=== PATIENT | male | born 1940 | race Caucasian/White ===

== ENCOUNTER → 2016-11-30 | Outpatient (CLI) | payer OTHER ==
[~2016-11-30] MED LIST: IOPAMIDOL (ISOVUE-370) 150 ML BTL IV ONE
[2016-11-30 14:17] LABS: CREATININE 0.9 mg/dL (0.7-1.3); GLOMERULAR FILTRATION RATE > 60
== END ==
LOC: FIMAGING 13:27
PROVIDERS: ATTEND Nurse Practitioner Family
DX: I71.2 Thoracic aortic aneurysm, without rupture (principal)
CPT/HCPCS: Q9967

== ENCOUNTER 2016-12-21 08:23 | Day surgery (SDC) | payer OTHER ==
[2016-12-21] MEDS ORDERED: NS 500 ML IV ONE (08:28)
[2016-12-21] MEDS ORDERED: MIDAZOLAM 2 MG/2 ML VIAL IVP ONE (08:28)
[2016-12-21] MEDS ORDERED: BENZOCAINE UNIT DOSE SPRAY HURRICAINE MM ONE (08:28)
[2016-12-21] MEDS ORDERED: PROPOFOL 200 MG/20 ML VIAL IVP ONE (08:28)
[2016-12-21] MEDS ORDERED: fentaNYL 100 MCG/2 ML INJ IVP ONE (08:28)
--- NOTE | 2016-12-21 08:53 | CPEKG ---
Heart Rate: 106 RR Interval: 566 QRSD Interval: 100 QT Interval: 364 QTC Interval: 484 QRS [place]: 31 T Wave [place]: 5 EKG Severity - ABNORMAL ECG - EKG Impression: ATRIAL FIBRILLATION -- New since May 09, 2015 EKG Impression: BORDERLINE PROLONGED QT INTERVAL Electronically Signed By: Marito Fernández 21-Dec-2016 12:18:10
[2016-12-21 09:23] LABS: APTT 30.1 SEC (23.0-38.0); INR 1.22 (0.83-1.16); PROTIME(PATIENT) 15.4 SEC (12.0-15.0)
[2016-12-21 09:32] LABS: ANION GAP 9 mEq/L (8-16); CARBON DIOXIDE 24 mEq/l (22-31); CHLORIDE 108 mEq/L (97-110); CREATININE 0.8 mg/dL (0.7-1.3); GLOMERULAR FILTRATION RATE > 60; GLUCOSE 102 mg/dL (70-100); MAGNESIUM 1.9 mg/dL (1.6-2.3); SODIUM 141 mEq/L (134-144)
--- NOTE | 2016-12-21 10:21 | PDTEE1 ---
FELICIANO Cardioversion Procedure Procedure: Electrical Cardioversion (pt with chronic atrial fibrillatiion and eliquis for two months,,..TTE showed normal lvef and no valvular pathology or phtn..no FELICIANO needed) Indications: Atrial Fibrillation Consent: Signed and in Chart Anticoagulation: Eliquis Procedural Details: Pads were placed in anterior-posterior position. FELICIANO probe was advanced and standard images obtained. There is no evidence of left atrial or left atrial appendage thrombus. Synchronized cardioversion attempt #1: 200J Synchronized cardioversion attempt #2: other (225) Synchronized cardioversion attempt #3: other (250) Results: Other (pt failed to convert ..pt remains in atrial fobrillatio) Conclusions: other (unable to convert to NSR pt remains in atrial fobrillation...no NSR noted on any conversion attempt) Conclusion Comment: 1. pt will continue on rate control strategy and eloquis..f /u with chace Patient Problems: Problems Problem Status Onset Osteoarthritis of hip Acute Primary localized osteoarthritis of right hip Acute
--- NOTE | 2016-12-21 13:56 | ECHO ---
[id number] + + [id number] : : [facility] [address] : : [phone] + Adult Echocardiographic Report + --+ :Name: Cameron GALLARDO Date: 12/21/2016 10:12 AM : : Hospital Admission Number: [id number] Location: VC: :: 1940 Gender: Male : :Age: 76 yrs Race: WH : :Reason For Study: Eval mitral valve and EF : + --+ Doppler Measurements \T\ Calculations TR max dennys: 218.5 cm/sec TR max P.1 mmHg RAP systole: 5.0 mmHg RVSP(TR): 24.1 mmHg Left Ventricle EF estimate is 60-65%. Right Ventricle The right ventricle is grossly normal size. Atria The left atrial size is normal. The right atrium is mild to moderately dilated. Mitral Valve The mitral valve is normal. There is trace mitral regurgitation. Tricuspid Valve There is trace tricuspid regurgitation. Right ventricular systolic pressure is normal. Right ventricular systolic pressure is 24mmHg. Aortic Valve Trace aortic regurgitation. Conclusion Limited 2-D echo. EF estimate is 60-65%. The right atrium is mild to moderately dilated. There is trace mitral regurgitation. Trace aortic regurgitation. There is trace tricuspid regurgitation. Right ventricular systolic pressure is normal. Right ventricular systolic pressure is 24mmHg. Final Reading Physician: Emma Rhodes signed on 12/21/2016 01:54 PM Ordering Physician: CASEY WHELAN Performed By: Radha Muse RDCS
== END 2016-12-21 11:30 | disposition home or self-care (01) ==
LOC: FCATH 08:23
PROVIDERS: ATTEND Internal Medicine Cardiovascular Disease
PROC: 5A2204Z Restoration of Cardiac Rhythm, Single (ICD-10-PCS; principal; 2016-12-21)
DX: I48.91 Unspecified atrial fibrillation (principal); I71.9 Aortic aneurysm of unspecified site, without rupture; I48.1 Persistent atrial fibrillation; I10 Essential (primary) hypertension; N40.0 Benign prostatic hyperplasia without lower urinary tract symptoms; E78.5 Hyperlipidemia, unspecified; G47.00 Insomnia, unspecified; R35.1 Nocturia; E55.9 Vitamin D deficiency, unspecified
CPT/HCPCS: J2704